=== PATIENT | male | born 1990 | race Caucasian/White ===

== ENCOUNTER 2020-04-11 21:15 | Emergency (ER) | payer OTHER ==
[~2020-04-11] VITALS: Ht 172.7 cm; Wt 62.3 kg
[2020-04-11 21:46] VITALS: BP 99/58; Ht 172.7 cm; Wt 62.3 kg
[2020-04-11 22:59] LABS: BASOPHIL % 0.4 % (0.2-1.5); PLATELET COUNT 278 x10^3mcL (152-348); RED CELL DISTRIBUTION WIDTH 12.3 % (12.1-16.2)
[2020-04-11 23:00] LABS: rbc morphology (normal/abnorm) NORMAL (NORMAL)
[2020-04-11 23:14] LABS: CALCIUM 8.4 mg/dL (8.5-10.1); CHLORIDE SERUM 101 mmol/L (98-107); CREATININE SERUM 0.9 mg/dL (0.7-1.3); GFR1 > 60 mL/min; GLUCOSE SERUM 121 mg/dL (74-106); POTASSIUM SERUM 4.1 mmol/L (3.5-5.1); SODIUM SERUM 136 mmol/L (136-145)
[2020-04-11 23:19] LABS: ALBUMIN 3.9 g/dL (3.4-5.0); ALKALINE PHOSPHATASE 65 U/L (46-116); ALT/SGPT 26 U/L (16-63); AST/SGOT 17 U/L (15-37); BILIRUBIN TOTAL 0.9 mg/dL (0.20-1.00); LIPASE 65 IU/L (73-393); TOTAL PROTEIN, SERUM 6.4 g/dL (6.4-8.2)
== END 2020-04-12 02:11 | disposition home or self-care (01) ==
LOC: ED 21:15
PROVIDERS: Student in an Organized Health Care Education/Training Program
DX: R11.2 Nausea with vomiting, unspecified (principal); K92.1 Melena
CPT/HCPCS: C9113; Q0162; Q9967